=== PATIENT | male | born 1960 | race Caucasian/White ===

== ENCOUNTER 2021-08-11 12:33 | Outpatient (CLI) | payer BC, SELFPAY | END 2021-08-11 12:34 | disposition home or self-care (01) | LOC: ANHAUDIO 12:34 | PROVIDERS: PCP Internal Medicine; Visit Provider Otolaryngology | DX: H91.93 Unspecified hearing loss, bilateral (principal); H93.13 Tinnitus, bilateral; H69.83 Other specified disorders of Eustachian tube, bilateral | CPT/HCPCS: 92557; 92567 ==

== ENCOUNTER 2021-08-14 01:53 | Day surgery (SDC) | payer BC, SELFPAY ==
[2021-08-01 12:38] VITALS: BMI 27.0
[2021-08-14 11:44] VITALS: BP 123/77; PULSE 58; RESP 18; TEMP 36.1; O2SAT 100; BMI 26.3
--- NOTE | 2021-08-14 11:53 | WPDGICN ---
Assessment and Plan Assessment and plan (1) Positive colorectal cancer screening using Cologuard test: Code(s): R19.5 - Other fecal abnormalities Status: Acute Assessment and Plan: Patient's Cologuard test was positive for this reason colonoscopy will be performed. Further recommendations will be given after endoscopy. GI Consult Note Consult date/time: 08/14/21 11:53 HPI: Doyle Marques is a 60 year old male Presents for screening colonoscopy. Patient's current weight appetite bowel movements are normal. He denies abdominal pain. He has had no bleeding. Family history is noncontributory. Patient recently had a screening Cologuard test that was positive. He returns now for neoplasia screening colonoscopy. Review of Systems Review of Systems: All systems reviewed & are unremarkable except as noted in HPI and below PMFSH Social History Social History (Reviewed 07/15/21 @ 13:29 by Arabella Shepherd [facility]) Smoking status: Never smoker Alcohol intake: never Drinks per week: 2 Alcohol use details: socially Substance use: unknown Substance use type: does not use Living arrangements: with family Spiritual care concerns: No Meds Home Medications and Allergies Home Medications Medication Instructions Recorded Confirmed Type fluticasone propionate 50 2 spray INTRANASAL BID #16 ml 07/15/21 08/14/21 Rx mcg/actuation nasal spray,suspension Allergies Allergy/AdvReac Type Severity Reaction Status Date / Time No Known Allergies Allergy Unknown Verified 08/14/21 11:43 Vital Signs Vital Signs - 24 hr 08/14/21 11:44 Temperature 97.0 F L Pulse Rate 58 L Respiratory Rate 18 Blood Pressure 123/77 Pulse Oximetry 100 Exam Narrative: Physical exam reveals patient to be alert. Vital signs stable. HEENT exam is unremarkable. Patient is anicteric. Lungs are clear to auscultation and percussion. Heart is without murmur or extra sounds. Abdominal exam bowel sounds are present soft nontender with no organomegaly. Digital external rectal exam is normal.
[2021-08-14] MEDS: LACTATED RINGERS 1,000 ML 150 ML IV CONT (11:55)
--- NOTE | 2021-08-14 12:21 | P.PNAN_ITS ---
Anes - Initial Pre Proc Eval Procedure: Operation Date: 08/14/21 13:00 Proposed Procedures p Colonoscopy - Ronald Lopez MD Date/Time: 08/14/21 12:21 Surgeon: Ronald Lopez MD Pre Op Diagnosis: positive cologuard Patient Data Age: 60 Gender: M Height: 1.68 m Weight: 74 kg Last Vital Signs Temp 36.1 C L 08/14/21 11:44 Pulse 58 L 08/14/21 11:44 Resp 18 08/14/21 11:44 BP 123/77 08/14/21 11:44 Pulse Ox 100 08/14/21 11:44 Allergies Allergy/AdvReac Type Severity Reaction Status Date / Time No Known Allergies Allergy Unknown Verified 08/14/21 11:43 Home Medications Medication Instructions Recorded Confirmed Type fluticasone propionate 50 2 spray INTRANASAL BID #16 ml 07/15/21 08/14/21 Rx mcg/actuation nasal spray,suspension Patient hx anesthesia problems: none Family hx anesthesia problems: none Results Review: All pre-operative results and documents have been reviewed as part of the pre-operative evaluation. [facility] Past Medical History Medical History (Updated 08/14/21 @ 12:21 by Luke Childs MD) Overweight (BMI 25.0-29.9) Social History Social History Smoking status: Never smoker Alcohol intake: never Drinks per week: 2 Alcohol use details: socially Substance use: unknown Substance use type: does not use Living arrangements: with family Spiritual care concerns: No Anes - Eval Final PreProcedure Day of Procedure 08/14/21 12:21 Patient weight: overweight Heart: regular rate and rhythm Lungs: clear to auscultation and normal air movement Airway: Mallampati scale class II Neurological: alert and oriented Last oral intake: >/= 8 hours ASA classification: II Emergent: no Anesthetic plan: proceed Anesthesia type and monitoring: general GIVS Results Review: All pre-operative results and documents have been reviewed as part of the pre-operative evaluation. Informed Consent: The patient's anesthetic plan and its attendant risks and benefits were discussed with the patient/family/POA. Questions were solicited and answers provided to the satisfaction of the patient/family/POA.
[2021-08-14 13:38] VITALS: BP 102/73; PULSE 58; RESP 16; O2SAT 98
[2021-08-14 13:48] VITALS: BP 109/76; PULSE 58; RESP 18; O2SAT 100
[2021-08-14 13:58] VITALS: BP 117/84; PULSE 56; RESP 17; O2SAT 100
== END 2021-08-14 14:03 | disposition home or self-care (01) ==
PROVIDERS: PCP Internal Medicine; Visit Provider Internal Medicine Gastroenterology
PROC: 0DJD8ZZ Inspection of Lower Intestinal Tract, Via Natural or Artificial Opening Endoscopic (ICD-10-PCS; CPT 45378; principal; 2021-08-14 13:00)
DX: R19.5 Other fecal abnormalities (principal)
CPT/HCPCS: 45378; J2704; J7120